=== PATIENT | female | born 1995 | race African-American/Black ===

== ENCOUNTER 2021-09-20 12:05 | Emergency (ER) | payer OTHER ==
[~2021-09-20] VITALS: Ht 157.5 cm; Wt 97.5 kg
[2021-09-20] MEDS ORDERED: SODIUM CHLORIDE 0.9% 1000ML 1,000 ML IV STA (12:19)
[2021-09-20] MEDS ORDERED: FAMOTIDINE 20 MG/2 ML VIAL IV ONE ×2 (12:30→13:00)
[2021-09-20] MEDS ORDERED: KETOROLAC TROMETHAMINE 30 MG/ML VIAL IV ONE (12:30)
[2021-09-20] MEDS ORDERED: ONDANSETRON HCL INJ 2MG/ML 2ML 2 MG/ML VIAL IV ONE (12:30)
[2021-09-20] MEDS ORDERED: ONDANSETRON ODT4 MG PO (12:45)
[2021-09-20] MEDS ORDERED: FAMOTIDINE20 MG PO (12:45)
[2021-09-20] MEDS ORDERED: SODIUM CHLORIDE 0.9% 1000ML 1,000 ML ONE (13:00)
[2021-09-20] MEDS ORDERED: ONDANSETRON HCL INJ 2MG/ML 2ML 2 MG/ML VIAL ONE (13:00)
[2021-09-20] MEDS ORDERED: KETOROLAC TROMETHAMINE 30 MG/ML VIAL ONE (13:00)
== END 2021-09-20 13:22 | disposition home or self-care (01) ==
LOC: FSED 12:15
DX: R07.89 Other chest pain (principal); K29.70 Gastritis, unspecified, without bleeding; R10.13 Epigastric pain; R11.0 Nausea
CPT/HCPCS: 80053; 81003; 82553; 84484; 85025; 99283; J1885; J2405; J7030

== ENCOUNTER 2021-09-22 15:23 | Emergency (ER) | payer OTHER ==
[~2021-09-22] VITALS: Ht 157.5 cm; Wt 97.3 kg
[~2021-09-22 15:23] MED LIST: FAMOTIDINE20 MG PO; ONDANSETRON ODT4 MG PO
[2021-09-22] MEDS ORDERED: CYCLOBENZAPRINE5 MG PO (18:24)
[2021-09-22] MEDS ORDERED: IBUPROFEN 600 MG TAB PO STA (18:30)
[2021-09-22] MEDS ORDERED: IBUPROFEN 600 MG TAB ONE (18:40)
== END 2021-09-22 18:30 | disposition home or self-care (01) ==
LOC: FSED 15:30
DX: M79.605 Pain in left leg (principal); M79.604 Pain in right leg; R25.2 Cramp and spasm; M79.89 Other specified soft tissue disorders
CPT/HCPCS: 93970; 99283